=== PATIENT | male | born 1980 | race African-American/Black ===

== ENCOUNTER 2020-06-08 19:43 | Emergency (ER) | payer OTHER ==
[~2020-06-08] VITALS: Ht 172.7 cm; Wt 99.8 kg
--- NOTE | ~2020-06-08 | EKG ---
[facility] [place] [address] ELECTROCARDIOGRAM REPORT Name: ANN MARIE FERREIRA Room #: [facility] M.R.#: [id number] Admission: Attend Phys: Discharge: Date of : 82 Report #: [id number] THIS REPORT FOR: cc: BRENDAN Simmons family physician/PCP BRENDAN Simmons family physician/PCP Lise Lezama MD ~ THIS REPORT FOR: //name// [facility] ED Test Date: 2020-06-08 Test Time: 19:52:17 Pat Name: ANN MARIE FERREIRA Department: Room: Gender: M Podiatric Physician: SASHA : 1980 Requested By: Liberty Kim Order Number: [id number] MD: Measurements Intervals [place] Rate: 139 P: 40 VA: 123 QRS: 86 QRSD: 79 T: 22 QT: 289 QTc: 440 Interpretive Statements Sinus tachycardia Probable left atrial enlargement Abnormal R-wave progression, late transition Baseline wander in lead(s) V4 No previous ECG available for comparison [email or web address] By: 51 51 Epiphany Epiphany, /EPI
[~2020-06-08 19:43] MED LIST: AUGMENTIN 875-1 EACH PO
[2020-06-08 21:35] LABS: ABSOLUTE NEUTROPHILS 4.1 thou/uL (1.4-8.2); BASOPHILS 0.9 % (0.0-2.0); EOSINOPHILS 0.6 % (0.0-3.0); HEMOGLOBIN 14.2 gm/dL (14.0-18.0); LYMPHOCYTES 39.4 % (24.0-44.0); MCH 26.5 pg (26.0-34.0); MCHC 33.1 g/dL (28.0-37.0); MCV 80.1 fL (80.0-100.0); MONOCYTES 10.1 % (1.0-8.0); PLATELET COUNT 323 thou/uL (150-400); RBC 5.37 mil/uL (4.50-6.00); RDW 14.7 % (10.5-14.5); WBC 8.4 thou/uL (4.0-11.0)
[2020-06-08 21:46] LABS: ANION GAP 12 mmol/L (7-16); BUN 14 mg/dL (7-18); CALCIUM 9.4 mg/dL (8.5-10.1); CHLORIDE 102 mmol/L (98-107); CO2 28 mmol/L (21-32); CREATININE 1.7 mg/dL (0.7-1.3); GLUCOSE 84 mg/dL (74-106); POTASSIUM 4.6 mmol/L (3.5-5.1); SODIUM 142 mmol/L (136-145)
[2020-06-08 21:47] LABS: SALICYLATE < 2.8 mg/dL (2.8-20.0)
[2020-06-08 21:55] LABS: ALBUMIN 4.6 g/dL (3.4-5.0); SGOT 47 U/L (15-37); SGPT 42 U/L (30-65); TOTAL BILIRUBIN 1.2 mg/dL (0.2-1.0); TOTAL PROTEIN 9.2 g/dL (6.4-8.2); TROPONIN-I <0.06 ng/mL (<0.06)
[2020-06-09 01:38] LABS: METHADONE Negative (Negative); PCP Negative (Negative)
[2020-06-09 01:48] LABS: AMP/METHAMP POSITIVE (Negative); BARBITURATES Negative (Negative); BENZODIAZEPINES Negative (Negative); COCAINE Negative (Negative); OPIATES POSITIVE (Negative)
[2020-06-09 02:45] VITALS: BP 113/67
--- NOTE | 2020-06-09 07:27 | EKG ---
[facility] [place] [address] ELECTROCARDIOGRAM REPORT Name: ANN MARIE FERREIRA Room #: DEP [facility].#: [id number] Admission: 06/08/20 Attend Phys: Discharge: 06/09/20 Date of : 82 Report #: [id number] THIS REPORT FOR: cc: BRENDAN Simmons family physician/PCP BRENDAN Simmons family physician/PCP Lalo Lackey MD [facility] THIS REPORT FOR: //name// [facility] ED Test Date: 2020-06-08 Test Time: 19:52:17 Pat Name: ANN MARIE FERREIRA Department: Room: Gender: Harbor 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: [facility] : 1980 Requested By: Liberty Kim Order Number: [id number] MD: Lalo Lackey Measurements Intervals [place] Rate: 139 P: 40 [place]: 123 QRS: 86 QRSD: 79 T: 22 QT: 289 QTc: 440 Interpretive Statements Sinus tachycardia Probable left atrial enlargement Abnormal R-wave progression, late transition Baseline wander in lead(s) V4 No previous ECG available for comparison Electronically Signed On 06-09-2020 7:27:17 CABLE SPOOLER by Lalo Lackey [email or web address] <ELECTRONICALLY SIGNED> By: Lalo Lackey MD, FACC 06/09/20 0727 51 51 Lalo Lackey MD, FAC /EPI
--- NOTE | 2020-06-09 15:31 | EKG ---
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 : 1980 Requested By: Liberty Kim Order Number: [id number] MD: Delmar Cordova Measurements Intervals [place] Rate: 116 P: 28 [place]: 129 QRS: 22 QRSD: 77 T: 22 QT: 307 QTc: 427 Interpretive Statements Sinus tachycardia Probable left atrial enlargement Abnormal R-wave progression, late transition Compared to ECG 06/08/2020 19:52:17 No significant changes Electronically Signed On 06-09-2020 15:31:50 TRANSITION RN by Delmar Cordova [email or web address] <ELECTRONICALLY SIGNED> By: Delmar Cordova MD 06/09/20 1531 45 45 Delmar Cordova MD /EPI
== END 2020-06-09 02:46 | disposition home or self-care (01) ==
LOC: ER 19:43
PROVIDERS: Physician Assistant
DX: R07.89 Other chest pain (principal); R00.0 Tachycardia, unspecified; F20.9 Schizophrenia, unspecified; F19.10 Other psychoactive substance abuse, uncomplicated; R06.02 Shortness of breath; M79.18 Myalgia, other site; R41.82 Altered mental status, unspecified; F17.210 Nicotine dependence, cigarettes, uncomplicated; Z79.2 Long term (current) use of antibiotics; Z20.828 Contact with and (suspected) exposure to other viral communicable diseases; Z91.14 Patient's other noncompliance with medication regimen

== ENCOUNTER 2020-11-20 00:51 | Emergency (ER) | payer OTHER ==
[~2020-11-20] VITALS: Ht 182.9 cm; Wt 99.8 kg
[2020-11-20 00:55] VITALS: BP 146/93
[2020-11-20 01:25] LABS: URINE BILIRUBIN NEGATIVE (Negative); URINE BLOOD NEGATIVE (Negative); URINE CLARITY CLEAR; URINE COLOR YELLOW; URINE GLUCOSE-RANDOM* NEGATIVE (Negative); URINE KETONES NEGATIVE (Negative); URINE LEUKOCYTES-REFLEX NEGATIVE (Negative); URINE NITRITE-REFLEX NEGATIVE (Negative); URINE PROTEIN (DIPSTICK) NEGATIVE (Negative); URINE UROBILINOGEN 0.2 E.U./dl (0.2-1.0)
[2020-11-20 01:32] LABS: ABSOLUTE NEUTROPHILS 5.1 thou/uL (1.4-8.2); BASOPHILS 0.8 % (0.0-2.0); EOSINOPHILS 0.3 % (0.0-3.0); HEMATOCRIT 41.3 % (42.0-52.0); HEMOGLOBIN 13.6 gm/dL (14.0-18.0); LYMPHOCYTES 24.6 % (24.0-44.0); MCH 26.9 pg (26.0-34.0); MCV 81.5 fL (80.0-100.0); MONOCYTES 8.9 % (1.0-8.0); PLATELET COUNT 270 thou/uL (150-400); POLYS 65.4 % (36.0-66.0); RBC 5.07 mil/uL (4.50-6.00); RDW 15.6 % (10.5-14.5); WBC 7.8 thou/uL (4.0-11.0)
[2020-11-20 01:35] LABS: AMP/METHAMP POSITIVE (Negative); BARBITURATES Negative (Negative); BENZODIAZEPINES Negative (Negative); COCAINE POSITIVE (Negative); METHADONE Negative (Negative); OPIATES Negative (Negative); PCP POSITIVE (Negative)
[2020-11-20 01:37] LABS: CALCIUM 8.5 mg/dL (8.5-10.1); CREATININE 1.4 mg/dL (0.7-1.3); POTASSIUM 3.1 mmol/L (3.5-5.1)
[2020-11-20 01:43] LABS: ALBUMIN 4.1 g/dL (3.4-5.0); TOTAL BILIRUBIN 0.6 mg/dL (0.2-1.0)
== END 2020-11-20 01:50 | disposition left against medical advice (07) ==
LOC: ER 00:51
PROVIDERS: Emergency Medicine
DX: R10.31 Right lower quadrant pain (principal); F20.9 Schizophrenia, unspecified; F17.210 Nicotine dependence, cigarettes, uncomplicated

== ENCOUNTER 2020-12-13 11:05 | Emergency (ER) | payer OTHER ==
[~2020-12-13] VITALS: Ht 175.3 cm; Wt 90.7 kg
[2020-12-13 11:06] VITALS: BP 135/72
--- NOTE | 2020-12-13 12:37 | EKG ---
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
== END 2020-12-13 12:10 | disposition left against medical advice (07) ==
LOC: ER 11:05
DX: F20.9 Schizophrenia, unspecified (principal); R06.02 Shortness of breath; R10.9 Unspecified abdominal pain; R51.9 Headache, unspecified; H57.89 Other specified disorders of eye and adnexa; F17.210 Nicotine dependence, cigarettes, uncomplicated; Z79.2 Long term (current) use of antibiotics

== ENCOUNTER 2021-01-31 05:11 | Emergency (ER) | payer OTHER ==
[~2021-01-31] VITALS: Ht 172.7 cm; Wt 79.4 kg
[2021-01-31 05:16] VITALS: BP 129/77
[2021-01-31] MEDS ORDERED: BUSPAR30 MG PO (05:21)
[2021-01-31 05:56] LABS: URINE BILIRUBIN NEGATIVE (Negative); URINE BLOOD NEGATIVE (Negative); URINE CLARITY CLEAR; URINE COLOR YELLOW; URINE GLUCOSE-RANDOM* NEGATIVE (Negative); URINE KETONES NEGATIVE (Negative); URINE LEUKOCYTES-REFLEX NEGATIVE (Negative); URINE NITRITE-REFLEX NEGATIVE (Negative); URINE PROTEIN (DIPSTICK) NEGATIVE (Negative)
[2021-01-31 07:00] LABS: ABSOLUTE NEUTROPHILS 2.2 thou/uL (1.4-8.2); EOSINOPHILS 0.4 % (0.0-3.0); HEMATOCRIT 37.6 % (42.0-52.0); HEMOGLOBIN 12.2 gm/dL (14.0-18.0); LYMPHOCYTES 42.6 % (24.0-44.0); MCH 26.9 pg (26.0-34.0); MCHC 32.6 g/dL (28.0-37.0); MCV 82.7 fL (80.0-100.0); MONOCYTES 9.3 % (1.0-8.0); PLATELET COUNT 302 thou/uL (150-400); POLYS 46.7 % (36.0-66.0); RBC 4.54 mil/uL (4.50-6.00); RDW 14.3 % (10.5-14.5); WBC 4.6 thou/uL (4.0-11.0)
[2021-01-31 07:08] LABS: CALCIUM 8.4 mg/dL (8.5-10.1); CREATININE 1.2 mg/dL (0.7-1.3); POTASSIUM 3.5 mmol/L (3.5-5.1)
[2021-01-31 07:15] LABS: ALBUMIN 3.4 g/dL (3.4-5.0); TOTAL BILIRUBIN 0.3 mg/dL (0.2-1.0); TOTAL PROTEIN 6.9 g/dL (6.4-8.2)
[2021-01-31] MEDS ORDERED: BENTYL 10 MG CA10 MG PO (07:23)
== END 2021-01-31 07:44 | disposition home or self-care (01) ==
LOC: ER 05:11
PROVIDERS: Emergency Medicine
DX: R10.0 Acute abdomen (principal); F20.9 Schizophrenia, unspecified; F17.210 Nicotine dependence, cigarettes, uncomplicated; Z79.899 Other long term (current) drug therapy; Z79.891 Long term (current) use of opiate analgesic; Z88.6 Allergy status to analgesic agent

== ENCOUNTER 2021-02-04 12:01 | Emergency (ER) | payer OTHER ==
[~2021-02-04] VITALS: Ht 172.7 cm; Wt 79.4 kg
[~2021-02-04 12:01] MED LIST changes: +BENTYL 10 MG CA10 MG PO; +BUSPAR30 MG PO
[2021-02-04 12:50] LABS: ABSOLUTE NEUTROPHILS 2.6 thou/uL (1.4-8.2); BASOPHILS 0.7 % (0.0-2.0); EOSINOPHILS 0.2 % (0.0-3.0); HEMATOCRIT 41.4 % (42.0-52.0); HEMOGLOBIN 13.9 gm/dL (14.0-18.0); LYMPHOCYTES 37.8 % (24.0-44.0); MCH 27.6 pg (26.0-34.0); MCHC 33.6 g/dL (28.0-37.0); MONOCYTES 10.8 % (1.0-8.0); PLATELET COUNT 311 thou/uL (150-400); POLYS 50.5 % (36.0-66.0); RBC 5.05 mil/uL (4.50-6.00); RDW 14.4 % (10.5-14.5); WBC 5.1 thou/uL (4.0-11.0)
[2021-02-04 12:58] LABS: ANION GAP 8 mmol/L (7-16); BUN 7 mg/dL (7-18); CALCIUM 8.5 mg/dL (8.5-10.1); CHLORIDE 104 mmol/L (98-107); CO2 29 mmol/L (21-32); CREATININE 1.3 mg/dL (0.7-1.3); GLUCOSE 98 mg/dL (74-106); POTASSIUM 3.9 mmol/L (3.5-5.1); SODIUM 141 mmol/L (136-145)
[2021-02-04 13:00] LABS: URINE BILIRUBIN NEGATIVE (Negative); URINE BLOOD NEGATIVE (Negative); URINE CLARITY CLEAR; URINE COLOR YELLOW; URINE GLUCOSE-RANDOM* NEGATIVE (Negative); URINE KETONES NEGATIVE (Negative); URINE LEUKOCYTES-REFLEX NEGATIVE (Negative); URINE NITRITE-REFLEX NEGATIVE (Negative); URINE PROTEIN (DIPSTICK) NEGATIVE (Negative); URINE UROBILINOGEN 0.2 E.U./dl (0.2-1.0)
[2021-02-04 13:03] LABS: ALBUMIN 3.8 g/dL (3.4-5.0); DIRECT BILIRUBIN < 0.1 mg/dL (<0.1-0.2); LIPASE 164 U/L (73-393); SGOT 31 U/L (15-37); SGPT 29 U/L (16-63); TOTAL BILIRUBIN 0.3 mg/dL (0.2-1.0); TOTAL PROTEIN 7.8 g/dL (6.4-8.2)
[2021-02-04 14:19] VITALS: BP 143/92
== END 2021-02-04 14:20 | disposition home or self-care (01) ==
LOC: ER 12:01
PROVIDERS: Nurse Practitioner
DX: R10.9 Unspecified abdominal pain (principal); F20.9 Schizophrenia, unspecified; F17.210 Nicotine dependence, cigarettes, uncomplicated; Z79.899 Other long term (current) drug therapy; Z88.6 Allergy status to analgesic agent

== ENCOUNTER 2021-02-06 21:50 | Emergency (ER) | payer OTHER ==
[~2021-02-06] VITALS: Ht 172.7 cm; Wt 79.4 kg
[2021-02-07 01:52] VITALS: BP 120/79
== END 2021-02-07 02:08 | disposition left against medical advice (07) ==
LOC: ER 21:50
DX: F41.9 Anxiety disorder, unspecified (principal); F20.9 Schizophrenia, unspecified; F17.210 Nicotine dependence, cigarettes, uncomplicated; Z79.899 Other long term (current) drug therapy; Z88.6 Allergy status to analgesic agent